=== PATIENT | male | born 1995 | race Hispanic/Latino ===

== ENCOUNTER 2021-01-07 16:13 | Emergency (ER) | payer OTHER ==
[~2021-01-07] VITALS: Ht 165.1 cm; Wt 76.4 kg
[2021-01-07 16:14] VITALS: BP 146/89
[2021-01-07] MEDS ORDERED: KETOROLAC 30 MG/ML 1ML VIAL IV ONE (18:10)
[2021-01-07] MEDS ORDERED: NS 500 ML IV ONE (18:10)
[2021-01-07] MEDS ORDERED: ONDANSETRON 4MG/2ML VIAL IV ONE (18:10)
== END 2021-01-07 18:17 | disposition left against medical advice (07) ==
LOC: M ED 16:13
DX: G43.909 Migraine, unspecified, not intractable, without status migrainosus (principal); F41.9 Anxiety disorder, unspecified; M51.9 Unspecified thoracic, thoracolumbar and lumbosacral intervertebral disc disorder; G89.29 Other chronic pain